=== PATIENT | male | born 1970 | race Two or more races ===

== ENCOUNTER 2023-03-23 15:41 | Emergency (ER) | payer MEDICARE, MEDICAID ==
[~2023-03-23] VITALS: Ht 182.9 cm; Wt 94.2 kg
[2023-03-23 15:51] VITALS: BP 146/95; PULSE 72; RESP 16; TEMP 98.3; O2SAT 97
== END 2023-03-23 17:24 | disposition home or self-care (01) ==
LOC: ER 15:43
DX: Z00.00 Encounter for general adult medical examination without abnormal findings (principal); F12.90 Cannabis use, unspecified, uncomplicated
CPT/HCPCS: 99283